=== PATIENT | male | born 1945 | race Caucasian/White ===

== ENCOUNTER 2017-05-31 19:33 | Emergency (ER) | payer OTHER ==
[~2017-05-31] VITALS: Ht 185.4 cm; Wt 86.2 kg
[2017-05-31 19:33] VITALS: BP_SYST 159
[2017-05-31 21:43] VITALS: BP_SYST 154
== END 2017-05-31 21:43 ==
LOC: SED 19:33
DX: S52.514A Nondisplaced fracture of right radial styloid process, initial encounter for closed fracture (principal); F10.129 Alcohol abuse with intoxication, unspecified; R03.0 Elevated blood-pressure reading, without diagnosis of hypertension; V89.2XXA Person injured in unspecified motor-vehicle accident, traffic, initial encounter; Y93.89 Activity, other specified; Y92.411 Interstate highway as the place of occurrence of the external cause; Y99.8 Other external cause status
CPT/HCPCS: 99284